=== PATIENT | female | born 1965 | race Caucasian/White ===

== ENCOUNTER → 2016-07-06 | Outpatient (CLI) | payer BC | LOC: CIMAGING 17:03 | PROVIDERS: ATTEND Family Medicine | DX: R06.02 Shortness of breath (principal); R05 Cough | CPT/HCPCS: 71020-PO ==

== ENCOUNTER 2016-10-10 18:34 | Emergency (ER) | payer SELFPAY ==
--- NOTE | 2016-10-10 18:45 | EDPHY ---
H & P HPI/ROS: HPI CHIEF COMPLAINT: Cough with clear sputum, wheezing, shortness of breath HISTORY OF PRESENT ILLNESS: This patient 51-year-old female, she has significant past medical history for Tourette's syndrome and gastric bypass surgery she presents to the emergency room shortness of breath and wheezing for the past 2-3 weeks. She states she has been on multiple rounds of antibiotics including a Z-Luis, and Levaquin. She did start to feel better after a Levaquin prescription. However over the past week she has had worsening wheezing, shortness of breath sputum production that is clear. No hemoptysis. No pleuritic pain. Denies chest pain. Denies fever. She states that she was coughing really bad today bronchitic and having coughing spells hard to catch her breath and decided come the emergency room. Past Medical History: Tourette's syndrome Past Surgical History: Gastric bypass Social History: Denies daily use drugs alcohol tobacco products. Lives locally. Family History: Noncontributory. ROS REVIEW OF SYSTEMS: A comprehensive 10 point review of systems is otherwise negative aside from elements mentioned in the history of present illness. Exam Constitutional appears well nontoxic, triage nursing summary reviewed, vital signs reviewed, awake/alert. Vital signs are noted. Eyes normal conjunctivae and sclera, EOMI, PERRLA. HENT normal inspection, atraumatic, moist mucus membranes, no epistaxis, neck supple/ no meningismus, no raccoon eyes. Respiratory decreased breath sounds bilaterally with audible wheezing, bronchitic hacking sounding cough. Cardiovascular rate normal, regular rhythm, no murmur, no edema, distal pulses normal. Gastrointestinal soft, non-tender, no rebound, no guarding, normal bowel sounds, no distension, no pulsatile mass. Genitourinary no CVA tenderness. Musculoskeletal no midline vertebral tenderness, full range of motion, no calf swelling, no tenderness of extremities, no meningismus, good pulses, neurovascularly intact. Skin pink, warm, & dry, no rash, skin atraumatic. Neurologic awake, alert and oriented x 3, AAOx3, moves all 4 extremities equally, motor intact, sensory intact, CN II-XII intact, normal cerebellar, normal vision, normal speech. Psychiatric normal mood/affect. Heme/Lymph/Immune no lymphadenopathy. Differential Diagnosis: Includes but is not limited to in a particular order, bronchitis, pneumonia, reactive airway disease, pneumothorax. Medical Decision Making: Plan for this patient IV establishment with IV fluid bolus, IV Solu-Medrol, DuoNeb breathing treatment, chest x-ray two view, basic blood work. Re-evaluate. Re-evaluation: EKG interpretation by me on record in [facility] system. Impression time of EKG 1902, this is sinus rhythm rate of 89 I do not appreciate acute ischemic changes. Specifically no significant ST elevation ST depression T-wave abnormalities. Unremarkable EKG. 1954: Re-evaluation at this time patient is feeling much better after DuoNeb breathing treatment. Re-examination of her lungs good air movement. Pulse ox normal. No respiratory distress. No wheezing. Good air movement. Patient feels better would like to go home. Prescription given for prednisone, guaifenesin, albuterol. Chest x-ray reviewed blood work reviewed. EKG nonischemic. Workup and clinical picture is consistent with acute bronchitis. Close follow-up with primary care doctor she understands. Source: Patient Constitutional: Initial Vital Signs Temperature (C) 37 C 10/10/16 18:35 Heart Rate 96 10/10/16 18:35 Respiratory Rate 20 10/10/16 18:35 Blood Pressure 106/84 H 10/10/16 18:35 O2 Sat (%) 97 10/10/16 18:35 O2 Delivery Mode Room Air Allergies/Adverse Reactions: Penicillins Allergy (Verified 10/10/16 18:52) Home Medications: Medication Instructions Recorded Abilify 10/10/16 Albuterol [Proventil Inhaler HFA 1 - 2 puffs IH Q4H #1 mdi 10/10/16 (*)] Clonidine 10/10/16 FLUoxetine 10/10/16 Guaifenesin [Guaifenesin ER] 600 mg PO BID #14 tab.er.12h 10/10/16 LORAZEPAM 10/10/16 [id number] Tablet 10/10/16 Myrbetriq 10/10/16 Strattera 10/10/16 ZYRTEC 10/10/16 buPROPion 10/10/16 predniSONE 60 mg PO DAILY #15 tab 10/10/16 traZODone 10/10/16 Medical Decision Making - Diagnostics Imaging Results: Imaging Impressions Chest X-Ray 10/10/16 18:46 Impression: Prominence of perihilar interstitial markings and peribronchial cuffing. Findings are nonspecific but can be seen with bronchitis, reactive airway disease, or viral process. - Data Points Laboratory Results: Laboratory Results 10/10/16 19:15 10/10/16 19:15 10/10/16 10/10/16 19:15 19:15 WBC 12.09 10^3/uL H 10^3/uL (3.80-9.50) RBC 4.56 10^6/uL 10^6/uL (4.18-5.33) Hgb 14.0 g/dL g/dL (12.6-16.3) Hct 41.8 % % (38.0-47.0) MCV 91.7 fL fL (81.5-99.8) MCH 30.7 pg pg (27.9-34.1) MCHC 33.5 g/dL g/dL (32.4-36.7) RDW 13.2 % % (11.5-15.2) Plt Count 273 10^3/uL 10^3/uL (150-400) MPV 10.7 fL fL (8.7-11.7) Neut % (Auto) 67.1 % % (39.3-74.2) Lymph % (Auto) 21.2 % % (15.0-45.0) Spencer % (Auto) 7.8 % % (4.5-13.0) Eos % (Auto) 2.8 % % (0.6-7.6) Baso % (Auto) 0.6 % % (0.3-1.7) Nucleat RBC Rel Count 0.0 % % (0.0-0.2) Absolute Neuts (auto) 8.12 10^3/uL H 10^3/uL (1.70-6.50) Absolute Lymphs (auto) 2.56 10^3/uL 10^3/uL (1.00-3.00) Absolute Monos (auto) 0.94 10^3/uL H 10^3/uL (0.30-0.80) Absolute Eos (auto) 0.34 10^3/uL 10^3/uL (0.03-0.40) Absolute Basos (auto) 0.07 10^3/uL 10^3/uL (0.02-0.10) Absolute Nucleated RBC 0.00 10^3/uL 10^3/uL (0-0.01) Immature Gran % 0.5 % % (0.0-1.1) Immature Gran # 0.06 10^3/uL 10^3/uL (0.00-0.10) Sodium 139 mEq/L mEq/L (134-144) Potassium 4.3 mEq/L mEq/L (3.5-5.2) Chloride 106 mEq/L mEq/L (97-110) Carbon Dioxide 21 mEq/l L mEq/l (22-31) Anion Gap 12 mEq/L mEq/L (8-16) BUN 16 mg/dL mg/dL (7-23) Creatinine 0.9 mg/dL mg/dL (0.6-1.0) Estimated GFR > 60 Glucose 82 mg/dL mg/dL (70-100) Calcium 8.6 mg/dL mg/dL (8.5-10.4) Medications Given: Discontinued Medications Albuterol/Ipratropium (Duoneb) 3 ml IH EDNOW ONE Stop: 10/10/16 18:47 Last Admin: 10/10/16 19:09 Dose: 3 ml Sodium Chloride (Ns) 1,000 mls @ 0 mls/hr IV EDNOW ONE; Wide Open PRN Reason: Protocol Stop: 10/10/16 18:52 Last Admin: 10/10/16 19:10 Dose: 1,000 mls Methylprednisolone Sodium Succinate (Solu-Medrol) 125 mg IVP EDNOW ONE Stop: 10/10/16 18:52 Last Admin: 10/10/16 19:19 Dose: 125 mg Departure - Departure Disposition: Home, Routine, Self-Care Clinical Impression: Acute bronchitis Qualifiers: Bronchitis organism: other organism Qualified Code(s): J20.8 - Acute bronchitis due to other specified organisms Condition: Good Instructions: Acute Bronchitis (ED) Additional Instructions: 1. Drink lots of fluids stay well-hydrated. 2. Use your inhaler every 4 hours as needed for cough and wheezing. 3. Return emergency room if you have worsening symptoms questions or concerns. 4. Please follow up with her primary care doctor. Referrals: Ana Rosa Benoit DO [Primary Care Provider] - As per Instructions Prescriptions: Albuterol [Proventil Inhaler HFA (*)] 1 - 2 puffs IH Q4H #1 mdi Guaifenesin [Guaifenesin ER] 600 mg PO BID #14 tab.er.12h predniSONE 60 mg PO DAILY #15 tab
[2016-10-10] MEDS ORDERED: IPRATROPIUM/ALBUTEROL 3 ML DEYVIAL IH ONE (18:46)
[2016-10-10] MEDS ORDERED: NS 1,000 ML IV ONE (18:51)
[2016-10-10] MEDS ORDERED: methylPREDNISolone SOD SUCC 125 MG/2 ML VIAL IVP ONE (18:51)
[2016-10-10 18:52] VITALS: TEMP 98.6
[2016-10-10] MEDS ORDERED: methylPREDNISolone SOD SUCC 125 MG/2 ML VIAL ONE (19:01)
--- NOTE | 2016-10-10 19:18 | CPEKG ---
Heart Rate: 89 RR Interval: 674 P-R Interval: 144 QRSD Interval: 88 QT Interval: 376 QTC Interval: 458 P [place]: 41 QRS [place]: -16 T Wave [place]: 47 EKG Severity - ABNORMAL ECG - EKG Impression: SINUS RHYTHM EKG Impression: CONSIDER LEFT VENTRICULAR HYPERTROPHY Electronically Signed By: Flaquito Alex 13-Oct-2016 08:15:48
[2016-10-10 19:23] LABS: % IMMATURE GRANULYOCYTES 0.5 % (0.0-1.1); ABSOLUTE IMMATURE GRANULOCYTES 0.06 10^3/uL (0.00-0.10); ADD DIFF? NO; ADD MORPH? NO; ADD SCAN? NO; ATYPICAL LYMPHOCYTE FLAG 10 (0-99); FRAGMENT RBC FLAG 0 (0-99); HEMATOCRIT 41.8 % (38.0-47.0); LEFT SHIFT FLG 0 (0-99); LIPEMIA HEMOLYSIS FLAG 80 (0-99); MEAN CELL HEMOGLOBIN 30.7 pg (27.9-34.1); MEAN CELL HEMOGLOBIN CONCENTR. 33.5 g/dL (32.4-36.7); MEAN CELL VOLUME 91.7 fL (81.5-99.8); MEAN PLATELET VOLUME 10.7 fL (8.7-11.7); PLATELET CLUMPS FLAG 0 (0-99); PLATELET COUNT 273 10^3/uL (150-400); RED BLOOD CELL COUNT 4.56 10^6/uL (4.18-5.33); RED CELL DISTRIBUTION WIDTH 13.2 % (11.5-15.2)
[2016-10-10 19:30] VITALS: O2SAT 96
[2016-10-10 19:34] LABS: ANION GAP 12 mEq/L (8-16); CALCIUM 8.6 mg/dL (8.5-10.4); CARBON DIOXIDE 21 mEq/l (22-31); CHLORIDE 106 mEq/L (97-110); CREATININE 0.9 mg/dL (0.6-1.0); GLOMERULAR FILTRATION RATE > 60; GLUCOSE 82 mg/dL (70-100); POTASSIUM 4.3 mEq/L (3.5-5.2); SODIUM 139 mEq/L (134-144)
[2016-10-10 20:11] VITALS: BP 121/85; PULSE 98; RESP 20
== END 2016-10-10 20:11 | disposition home or self-care (01) ==
LOC: CED 18:34
DX: J20.9 Acute bronchitis, unspecified (principal); E86.9 Volume depletion, unspecified
CPT/HCPCS: 71020-PO; 80048-PO; 85025-PO; 96374

== ENCOUNTER → 2018-02-28 | Outpatient (CLI) | payer OTHER | LOC: CIMAGING 09:40 | PROVIDERS: ATTEND Family Medicine | DX: J40 Bronchitis, not specified as acute or chronic (principal) | CPT/HCPCS: 71046-PO ==

== ENCOUNTER → 2018-04-02 | Outpatient (CLI) | payer OTHER | LOC: FIMAGING 08:07 | PROVIDERS: ATTEND Internal Medicine Pulmonary Disease | DX: R05 Cough (principal); K44.9 Diaphragmatic hernia without obstruction or gangrene; K21.9 Gastro-esophageal reflux disease without esophagitis; Z93.1 Gastrostomy status ==